=== PATIENT | female | born 1960 | race Caucasian/White ===

== ENCOUNTER 2018-07-31 07:07 | Day surgery (SDC) | payer OTHER ==
[2018-07-31] MEDS ORDERED: FENTAnyl 50 MCG/ML VIAL (09:57)
[2018-07-31] MEDS ORDERED: MIDAZOLAM 1 MG/ML 2 ML INJ ×3 (09:57)
== END 2018-07-31 16:44 | disposition home or self-care (01) ==
LOC: GIL 07:07
DX: Z12.11 Encounter for screening for malignant neoplasm of colon (principal); D12.5 Benign neoplasm of sigmoid colon; K64.8 Other hemorrhoids; I10 Essential (primary) hypertension
CPT/HCPCS: 45380; 88305